=== PATIENT | male | born 1945 | race Caucasian/White ===

== ENCOUNTER 2022-03-10 14:40 | Emergency (ER) | payer MEDICARE, SELFPAY ==
[2022-03-10 14:57] VITALS: BP 164/72; PULSE 71; RESP 18; TEMP 36.7; O2SAT 97
--- NOTE | 2022-03-10 15:14 | DI.CT_ITS ---
Exam(s) CT LUMBAR SPINE RECONS CT ABDOMEN PELVIS WO EXAM: CT ABDOMEN PELVIS WO CLINICAL HISTORY: prostate ca, back pain TECHNIQUE: COMPARISON: CT CT LUMBAR SPINE RECONS from 03/10/2022 FINDINGS: CT examination of the abdomen and pelvis was performed without contrast administration. Images obtained through the lung bases are unremarkable except for a 5 millimeter in diameter right m iddle lobe noncalcified nodule. No prior studies available for comparison. Considering the history of prostatic carcinoma, follow-up chest CT recommended in 6 months.. The liver appears normal with no evidence of a focal mass. Spleen is unremarkable in appearance.. Prior cholecystectomy noted, bile ducts are unremarkable. Pancreas is unremarkable in appearance. Adrenals appear normal bilaterally. There are apparent bilateral renal cysts, no evidence of a solid renal mass, hydronephrosis, or nephr olithiasis. Urinary bladder has a thickened wall and is trabeculated, question chronic bladder outle t obstruction versus radiation cystitis. There are radiotherapy seeds in the prostate period. There is no evidence of abdominal or pelvic adenopathy. Abdominal aorta is of normal diameter and no abnormality is seen involving major visceral branches.. Appendix is normal. No evidence diverticulitis or bowel obstruction. No significant abdominal wall hernia seen. Apart from degenerative changes, no suspicious change is identified in the lumbar spine or elsewhere in the visualized skeleton. Impression: No evidence of acute intra-abdominal process. No gross evidence of bony metastatic disease by CT cri teria. 5 millimeter noncalcified right middle lobe pulmonary nodule noted, although this is statistically mo st likely to be benign, metastatic disease is not entirely excluded and follow-up chest CT is recomme nded in 6 months. Unexpected finding of 5 millimeter intrapulmonary nodule, follow-up chest CT recommended in 6 months. RADIATION DOSE DELIVERED: 1079.33 mGy.cm Total DLP 1079.33 mGy.cm Total DLP !Error CTDIvol DATA REPOSITORY: All CT scans at this facility are submitted to the National Radiology Data Registry (NRDR) Dose Index Registry (DIR) with the [employer] ([employer]). RADIATION OPTIMIZATION: All CT scans at this facility use at least one of these dose optimization te chniques: automated exposure control; mA and/or kV adjustment per patient size (includes targeted exa ms where dose is matched to clinical indication); or iterative reconstruction.
--- NOTE | 2022-03-10 15:15 | W.ED.GENAD ---
Discharge Plan Disposition Patient Disposition: AGAINST MEDICAL ADVICE Condition: Stable Discharge Details Clinical Impression: Acute UTI Primary Care Provider: Alli Hansen ED Provider: Fran Butler Home Meds and New Rx's Prescriptions: New cefpodoxime 200 mg tablet 200 mg PO BID 10 Days Qty: 20 0RF Rx Instructions: must administer with a meal/food No Action metformin 500 mg Tablet 250 mg PO BID clopidogrel 75 mg Tablet 75 mg PO DAILY irbesartan 150 mg Tablet 150 mg PO QAM colchicine 0.6 mg Tablet 0.6 mg PO DAILY rosuvastatin [Crestor] 20 mg Tablet 20 mg PO DAILY nebivolol 5 mg Tablet 5 mg PO QHS Discharge Instructions Instructions: Urinary Tract Infection in Men (ED) Medical Decision Making 76-year-old male history of prostate cancer, metastatic to lung, currently undergoing chemotherapy, no radiation, presents with low back pain over the past several weeks to months; denies nausea vomiting fevers chills weakness or numbness in lower extremities or gait disturbances or falls. No recent trauma. No midline spinal tenderness crepitus or deformity. No CVA tenderness. Patient is afebrile nontoxic ambulatory without assistance. Consider musculoskeletal back pain such as muscle spasm versus nerve impingement versus must consider metastatic prostate cancer to the bone given metastatic disease to the lung already versus UTI versus unlikely pyelonephritis versus less likely kidney stone. Will obtain screening imaging of abdomen pelvis with reconstitution of lumbar spine, will administer Toradol for anti-inflammatory effect, will obtain UA. Likely close follow-up with primary oncologist and urologist. 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 Patient's work-up the emergency department before being counselled. CT abdomen pelvis and lumbar spine still pending. I will electronically send patient's prescription for UTI to his pharmacy. HPI General Date/Time Provider Initiated Documentation: 03/10/22 15:02. HPI Narrative: 76-year-old male history of prostate cancer currently undergoing chemotherapy, with metastases to lung, no current radiation, had been treated with local seed implantation in the past, follows with outside urologist presents with recurrent lower back pain over the past several weeks to months. Denies fevers chills nausea or vomiting. Denies abdominal pain. Denies weakness or numbness in legs or change in his gait. Related Data Home Medications Medication Instructions Recorded Confirmed cefpodoxime 200 mg tablet 200 mg PO BID 10 days #20 tabs 03/10/22 clopidogrel 75 mg tablet 75 mg PO DAILY 03/10/22 03/10/22 colchicine 0.6 mg tablet 0.6 mg PO DAILY 03/10/22 03/10/22 irbesartan 150 mg tablet 150 mg PO QAM 03/10/22 03/10/22 metformin 500 mg tablet 250 mg PO BID 03/10/22 03/10/22 nebivolol 5 mg tablet 5 mg PO QHS 03/10/22 03/10/22 rosuvastatin 20 mg tablet (Crestor) 20 mg PO DAILY 03/10/22 03/10/22 Previous Rx's Medication Instructions Recorded cefpodoxime 200 mg tablet 200 mg PO BID 10 days #20 tabs 03/10/22 Allergies Allergy/AdvReac Type Severity Reaction Status Date / Time No Known Allergies Allergy Unverified 03/10/22 16:33 General Stated Complaint: Nk/Back Pain KATERINA: 3 Review of Systems Narrative: Review of Systems Constitutional: negative Eyes: negative ENT: negative Cardiovascular: negative Respiratory: negative Gastrointestinal: negative : negative Musculoskeletal: Back pain Skin: negative Neurologic: negative Psych: negative PFSH All Active Problems (Updated 03/10/22 @ 17:35 by Fran Butler MD) Acute UTI (Acute) Social History Smoking/Tobacco Use Status: Never Smoking risk assessment performed?: Yes Alcohol Intake: current Alcohol Intake frequency: 0-2 drinks per day Alcohol type: beer and wine Drug use: Never Do you feel safe at home: Yes Do you feel safe in your relationship?: Yes Exam Narrative Exam Narrative: Physical Examination General: alert, awake, cooperative, resting comfortably, no acute distress HEENT: normocephalic, atraumatic; PERRL, EOM intact, conjunctiva normal; no nasal discharge; moist mucous membranes, oral and pharyngeal mucosa normal, tolerating secretions Neck: supple, trachea midline; full ROM Chest: normal to inspection Respiratory: normal respiratory effort, speaking in full sentences, clear to auscultation, no wheezing, rales or rhonchi Cardiac: regular rate, regular rhythm, S1S2 intact, no murmurs rubs or gallops GI: abdomen soft, non-tender, non-distended; no palpable mass or hepatosplenomegaly Back: No midline spinal tenderness crepitus or deformity, no CVA tenderness Skin: no lesions, rashes or trauma appreciated Neuro: AAOx3, normal speech, moving all extremities without focal weakness, ambulatory without assistance Psych: Appropriate mood and affect Course Vital Signs Vital signs: Vital Signs Temperature 36.7 C 03/10/22 14:57 Pulse 71 03/10/22 14:57 Respiratory Rate 18 03/10/22 14:57 Blood Pressure 164/72 H 03/10/22 14:57 Pulse Oximetry 97 03/10/22 14:57 Temperature 36.7 C 03/10/22 14:57 Temperature Source Temporal Artery Scan 03/10/22 14:57 Pulse 71 03/10/22 14:57 Respiratory Rate 18 03/10/22 14:57 Blood Pressure 164/72 H 03/10/22 14:57 Blood Pressure Position Sitting 03/10/22 14:57 Pulse Oximetry 97 03/10/22 14:57 Oxygen Delivery Method Room Air 03/10/22 14:57 Oxygen Flow Rate 0 03/10/22 14:57
[2022-03-10 15:18] LABS: Bilirubin Negative (Negative); Blood Negative (Negative); Clarity Cloudy (Clear); Glucose Negative (Negative); Ketones Negative (Negative); Leukocyte Esterase Moderate (Negative); Nitrite Positive (Negative); Specific Gravity 1.015 (1.005-1.025); Urobilinogen 0.2 EU/dL (Up TO 0.2); pH 5.5 (5-8)
[2022-03-10] MEDS: Ketorolac 15 MG/ML VIAL IM (15:28)
[2022-03-10 15:29] LABS: Bacteria Packed HPF (Negative); C & S Indicated? Yes; Crystals Negative HPF (Negative); Epithelial Cells Negative HPF (Negative); Mucus Negative (Negative); Other Cells Few Transitional (Negative); RBC Negative HPF (0-2); WBC >50 HPF (0-5)
[2022-03-10] MEDS: Cefpodoxime 200 MG TAB PO (16:43)
--- NOTE | 2022-03-10 17:46 | DI.VRAD_ITS ---
PROCEDURE INFORMATION: Exam: CT Lumbar Spine Without Contrast Exam date and time: 03/10/2022 4:16 PM Age: 76 years old Clinical indication: Low back pain; Patient HX: Prostate CA, back pain, screening for mets. TECHNIQUE: Imaging protocol: Computed tomography of the lumbar spine without contrast. Radiation optimization: All CT scans at this facility use at least one of these dose optimization techniques: automated exposure control; mA and/or kV adjustment per patient size (includes targeted exams where dose is matched to clinical indication); or iterative reconstruction. COMPARISON: No relevant prior studies available. FINDINGS: Bones/joints: No acute fracture. Multilevel degenerative disc disease and bilateral facet arthropathy noted. There is retrolisthesis of L2 on L3 and L1 on L2. There is severe bilateral neural foraminal narrowing at L2-L3 and moderate bilateral neural foraminal narrowing at L1-L2 and at the right L3-L4 and L4-L5 levels. At least mild spinal canal stenosis is seen at L4-L5. Kidneys and ureters: Bilateral renal cysts are noted. Reproductive: Brachytherapy seeds are noted in the region of the prostate gland. Soft tissues: Unremarkable. IMPRESSION: 1. No evidence of acute fracture. 2. Prominent multilevel lumbar spine degenerative changes as described. 3. No evidence to suggest metastatic disease. Dictated and Authenticated by: Meenu Rodas MD. Ordering:JEOVANY Peters MD
--- NOTE | 2022-03-10 17:59 | DI.VRAD_ITS ---
PROCEDURE INFORMATION: Exam: CT Abdomen And Pelvis Without Contrast Exam date and time: 03/10/2022 4:16 PM Age: 76 years old Clinical indication: Patient HX: Prostate CA, questioning mets. Back pain TECHNIQUE: Imaging protocol: Computed tomography of the abdomen and pelvis without contrast. Radiation optimization: All CT scans at this facility use at least one of these dose optimization techniques: automated exposure control; mA and/or kV adjustment per patient size (includes targeted exams where dose is matched to clinical indication); or iterative reconstruction. COMPARISON: No relevant prior studies available. FINDINGS: Liver: Normal. No mass. Gallbladder and bile ducts: The patient is status post cholecystectomy. Pancreas: Normal. No ductal dilation. Spleen: Normal. No splenomegaly. Adrenal glands: Normal. No mass. Kidneys and ureters: A 4.2 cm simple appearing cyst is seen in the right kidney and 6 cm simple appearing cyst in the left kidney. No hydronephrosis. Stomach and bowel: No obstruction. No mucosal thickening. Appendix: No evidence of appendicitis. Intraperitoneal space: No free air. No significant fluid collection. Vasculature: No abdominal aortic aneurysm. Prominent atherosclerotic plaque noted. Lymph nodes: No enlarged lymph nodes. Urinary bladder: The urinary bladder velez are thickened, which could be secondary to underdistention versus infectious/inflammatory etiology. 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 Reproductive: Brachytherapy seeds are noted in place. Bones/joints: No acute fracture. Soft tissues: Unremarkable. IMPRESSION: 1. No evidence of lymphadenopathy. 2. Thickened urinary bladder velez, which could be secondary to underdistention, prior chronic outlet obstruction versus infectious/inflammatory etiology. Correlate with clinical laboratory findings. Dictated and Authenticated by: Meenu Rodas MD. Ordering:JEOVANY Peters MD
== END 2022-03-10 18:24 | disposition left against medical advice (07) ==
PROVIDERS: Emergency Provider Emergency Medicine; PCP Family Medicine
DX: N39.0 Urinary tract infection, site not specified (principal); C61 Malignant neoplasm of prostate; C78.00 Secondary malignant neoplasm of unspecified lung; R91.1 Solitary pulmonary nodule; Z53.20 Procedure and treatment not carried out because of patient's decision for unspecified reasons
CPT/HCPCS: 87077; 96372; 99284; 74176; 81003; 81015; 87086; 87186; J1885

== ENCOUNTER 2022-08-11 13:54 | Outpatient (CLI) | payer MEDICARE, SELFPAY ==
[2022-08-14 11:37] LABS: PSA, Ultrasensitive <0.01 ng/mL (<= 6.5)
== END 2022-08-11 13:55 | disposition home or self-care (01) ==
LOC: LBO 13:55
PROVIDERS: PCP Family Medicine; Visit Provider Internal Medicine
DX: C78.00 Secondary malignant neoplasm of unspecified lung (principal); C61 Malignant neoplasm of prostate
CPT/HCPCS: 36415; 84153

== ENCOUNTER → 2023-12-11 01:35 | Outpatient (CLI) | payer MEDICARE, SELFPAY ==
--- NOTE | 2023-12-11 07:15 | DI.RAD_ITS ---
Exam(s) XR FOOT LT COMPLETE EXAM: XR FOOT LT COMPLETE CLINICAL HISTORY: Left foot pain,m79.672. TECHNIQUE: 2D digital imaging was performed. Three views. COMPARISON: No exams were available for comparison FINDINGS: BONES: No acute fracture is present. No bony destructive lesion is seen. Plantar calcaneal spur. JOINTS: No dislocation present. hammertoe deformities, most severe at the 2nd toe. Moderate degenera tive changes of the 1st MTP joint. SOFT TISSUE: Normal. IMPRESSION: Severe hammertoe deformities. DATA REPOSITORY: RADIATION DOSE DELIVERED:
== END ==
PROVIDERS: PCP Family Medicine; Visit Provider Podiatrist
DX: M79.672 Pain in left foot (principal); M20.42 Other hammer toe(s) (acquired), left foot
CPT/HCPCS: 97597; 73630

== ENCOUNTER → 2023-12-17 10:52 | Outpatient (BNVA) | payer MEDICARE, SELFPAY | PROVIDERS: PCP Family Medicine; Referring Provider Family Medicine; Visit Provider Nurse Practitioner Gerontology | DX: C61 Malignant neoplasm of prostate (principal); R32 Unspecified urinary incontinence; N32.81 Overactive bladder | CPT/HCPCS: 51798; 81003; 99215 ==

== ENCOUNTER → 2025-04-15 10:32 | Outpatient (BNVA) | payer MEDICARE, SELFPAY | PROVIDERS: PCP Family Medicine; Referring Provider Family Medicine; Visit Provider Nurse Practitioner Gerontology | DX: C61 Malignant neoplasm of prostate (principal); N32.81 Overactive bladder; R32 Unspecified urinary incontinence; R39.9 Unspecified symptoms and signs involving the genitourinary system | CPT/HCPCS: 99214; 81002; 51798 ==